=== PATIENT | female | born 1985 | race Caucasian/White ===

== ENCOUNTER 2016-09-21 09:02 | Emergency (ER) | payer BC, OTHER ==
[2016-09-21 09:33] VITALS: BP 133/76; PULSE 74; RESP 18; TEMP 97.9; O2SAT 100
--- NOTE | 2016-09-21 09:45 | UCPHY ---
H & P Time Seen by Provider: 09/21/16 09:32 Patient Type: New HPI/ROS: The patient has a 1 week history of sinus pressure to the right cheek that restored tooth and worsens when she bends forward. The pain is 7/10 intensity with partial improvement from ibuprofen. No other exacerbating factors. She has associated green drainage from the right naris a clear drainage from the left naris. ROS: No high fevers or chills. HEENT: No sore throat. No ear pain. She has minimal air pressure right side. No confusion. No neck stiffness. No coughing. 7 plan ROS is otherwise negative. Smoking Status: Never smoked Physical Exam: Physical Exam Vital signs are normal. General: No acute distress HEENT: Nose: Swelling is because the right side with purulent-appearing drainage. Left side is clear she has sinus tenderness to percussion over the right maxillary sinus. Ears: External canals and TMs are clear bilaterally. Oropharynx: No erythema or exudates. No dysphonia. Eyes: Pupils equal and react to light. Extraocular motions are intact. Lungs: Clear to auscultation bilaterally. No respiratory distress. Cardiac: Regular rate and rhythm with no murmur gallop rub. Skin: No rash or pallor. Neuro: Alert and oriented x3 with no sensorimotor deficits. Initial differential diagnosis: Maxillary sinusitis-bacterial most likely, viral sinusitis, Constitutional: Initial Vital Signs Temperature (C) 36.6 C 09/21/16 09:31 Heart Rate 74 09/21/16 09:31 Respiratory Rate 18 09/21/16 09:31 Blood Pressure 133/76 H 09/21/16 09:31 O2 Sat (%) 100 09/21/16 09:31 O2 Delivery Mode Room Air Allergies/Adverse Reactions: latex [Latex] Allergy (Verified 09/21/16 09:30) Home Medications: Medication Instructions Recorded Levitle Bcp 05/20/10 Azithromycin [Zithromax] 250 mg PO DAILY #6 tab 09/21/16 Fluticasone Nasal [Flonase Nasal 2 sprays NASAL DAILY #1 mdi 09/21/16 [place] (RX)] Omeprazole 09/21/16 MDM/Departure - MDM ED Course/Re-evaluation: I counseled the patient regarding sinusitis. Clinically she does not have evidence of [employer] infection, and sepsis or other concerning findings - Depart Disposition: Home, Routine, Self-Care Clinical Impression: Sinusitis, acute Qualifiers: Sinusitis location: maxillary Recurrence: non-recurrent Qualified Code(s): J01.00 - Acute maxillary sinusitis, unspecified Condition: Good Instructions: Sinusitis (ED) Additional Instructions: Diagnosis: Sinusitis Plan: Humidifier Flonase steroid nasal spray Zithromax antibiotic Ibuprofen for discomfort Return for any significant worsening despite the treatment plan. Prescriptions: Azithromycin [Zithromax] 250 mg PO DAILY #6 tab Fluticasone Nasal [Flonase Nasal [place] (RX)] 2 sprays NASAL DAILY #1 mdi Referrals: NONE *PRIMARY CARE P,. [Primary Care Provider] - As per Instructions - PQRS PQRS Measurement: NA
== END 2016-09-21 09:56 | disposition home or self-care (01) ==
LOC: CED 09:02
DX: J01.00 Acute maxillary sinusitis, unspecified (principal)
CPT/HCPCS: G0463-PO